=== PATIENT | male | born 2000 | race Caucasian/White ===

== ENCOUNTER 2021-11-18 02:19 | Outpatient (CLI) | payer BC, SELFPAY ==
[2021-11-18 12:24] LABS: Source Nasopharynx
[2021-11-18 16:03] LABS: COVID-19 PCR Negative (Negative)
== END 2021-11-18 02:20 | disposition home or self-care (01) ==
PROVIDERS: PCP Physician Assistant Medical; Visit Provider Surgery
DX: Z20.822 Contact with and (suspected) exposure to COVID-19 (principal); Z01.818 Encounter for other preprocedural examination
CPT/HCPCS: 87635

== ENCOUNTER 2021-11-20 10:48 | Day surgery (SDC) | payer BC, SELFPAY ==
[2021-11-20] VITALS (7 sets, daily range): BP systolic 92–129; BP diastolic 53–76; PULSE 64–73; RESP 11–18; TEMP 36.3–36.9; O2SAT 98–99; BMI 24.8
--- NOTE | 2021-11-20 07:30 | W.PM.OP ---
Date of service: 11/20/21 Time of Service: 12:40 Operative Note Operative Note DATE OF PROCEDURE: 11/20/21 PRE-OP DIAGNOSIS: pilonidal cyst POST-OP DIAGNOSIS: same PROCEDURE: Pilonidal cyst excision SURGEON: Ila Estrada Refer to Anesthesia Record ESTIMATED BLOOD LOSS: 25 PATHOLOGY: other (pilonidal cyst) COMPLICATIONS: None Patient was transported to: same day Patient's condition: stable Indications: Mr. Cherry is a pleasant 21-year-old gentleman with a pilonidal cyst.? We discussed surgery versus just watching for increase in symptoms.? The patient is tired of it draining and would like to proceed with surgery.? I discussed the risks and the benefits of the surgery as well as the surgery itself.? It would be important that he keeps the hair clipped while this is healing.? He will need help with this.? We also discussed the risk of wound dehiscence which is about 50% with the surgery.? If he does have a dehiscence he will need daily packing for weeks and sometimes months.? He understands and wishes to proceed. Risks, benefits, complications of pilonidal excision were reviewed with the patient and her stepfather.? Complications include but are not limited to bleeding, infection, seroma, hematoma, recurrence of the pilonidal cyst, wound dehiscence and adverse reaction to the medications.? We discussed a spinal anesthetic with MAC sedation for the procedure.? We reviewed pain medication for after surgery.? Reviewed use of Exparel mixed with bupivacaine to hopefully give her some pain relief for the first couple of days.? We discussed narcotic pain medications and risk of addiction.? We discussed safe disposal of any leftover narcotics.? Questions were entertained and answered to her satisfaction and she wished to proceed.? No guarantees were given or implied. Findings: large mass of hair under the dermis Procedure Description: After informed consent was obtained the patient was taken to the operating room and placed in a sitting position on the operating room table. Anesthesia then performed a spinal anesthetic. Once that was in place the patient was placed in a prone position on the bed. Monitors were applied and the patient was sedated. At this point a timeout was done. The patient's name, date of , allergies to medications, procedure to be performed, antibiotic prophylaxis and DVT prophylaxis were reviewed. Fire risk was assessed. Next the lower back and gluteal area was prepped and draped in a sterile surgical fashion. The midline was inspected and 3 small punctate areas were identified. The dermis and subcutaneous tissue were infiltrated with quarter percent bupivacaine plain. An elliptical incision was then made around the punctate areas measuring about 5 cm in length and about 0.4 cm in width. Dissection was done with cautery down to the coccyx. There was a lot of hair noted under the dermis. The tissue was removed from the operating field. The cavity was then irrigated with some normal saline. Small amount of bleeding was identified and this was cauterized. Once the wound was clean and dry it was closed in 4 layers. The first 3 layers were closed with interrupted 2-0 Vicryl sutures. The dermis was then reapproximated with horizontal mattress sutures with 2-0 Prolene. The skin was then cleaned and dried. mastasol and steri-strips were applied. The patient was then woken up and turned onto the [place] in a supine position. The patient tolerated the procedure well. Instrument needle and sponge counts were correct at the end of the case.
--- NOTE | 2021-11-20 07:32 | W.PM.DSUDISC ---
Discharge Plan Disposition Patient Disposition: HOME Condition: Good Discharge Details Reason For Visit: Pilonidal cyst Attending Provider: Ila Estrada Primary Care Provider: Eugenia Chiu Home Meds and New Rx's Prescriptions: New oxycodone 5 mg tablet 5 mg PO Q6H PRNQty: 14 0RF Continued calcium carbonate [Tums] 200 mg calcium (500 mg) tablet,chewable 200 mg PO DAILY Discharge Instructions Instructions: Pilonidal Cyst Excision (DC) Additional Instructions: Activity at Home after surgery: 1. Make sure you walk outside at least 4 times per day 2. You should be able to climb a flight of stairs 3. No driving while in pain or taking pain medications 4. No strenuous activity or heavy lifting for 4 weeks (open surgery) Diet, Nutrition, & wound healin. Avoid alcohol until after you are recovered from your surgery 2. Make sure to eat plenty of lean protein (meat, fish, eggs, cottage cheese, beans) 3. Eat a variety of fruits and vegetables. Eat plenty of high fiber foods to avoid constipation. 4. Drink plenty of liquids to stay hydrated and avoid constipation Pain Medications: 1. Tylenol 650mg every 6 hours as needed and Ibuprofen 600 mg every 6 hours as needed. You may alternate between the 2 medications every 3 hours 2. If a narcotic has been prescribed take as directed only for breakthrough pain For Constipation: 1. Take Milk of Magnesia or MiraLax as needed for constipation Other: 1. You may shower daily. Do not scrub the incisions 2. Do not soak the incisions for 1 week 3. You may alternate ice and heat as needed for pain and swelling Wound Care: 1. Keep the incisions clean and dry Please call our office if you develop: 1. Fevers >101.5 2. Nausea or Vomiting 3. Worsening pain 4. Redness and thick discharge from the wounds If after hours please call the Hospital at and ask to speak to the on-call surgeon Referrals: Ila Estrada MD [ [facility] STAFF PHYSICIAN] - 11/27/21 10:30 am Activity:: as above Shower/Bathe:: 24 hours Diet:: As Tolerated Discharge Orders Discharge Orders: Discharge Order (Routine); Ordered 11/20/21 Ordered By: Ila Estrada
--- NOTE | 2021-11-20 08:15 | W.ANESPRE ---
General Info Height: 5 ft 10 in Weight: 79.379 kg Body Mass Index (BMI): 25.1 Surgical Procedure: Operation Date: 11/20/21 12:10 Proposed Procedure Side Surgeon p Pilonidal Cyst Excision Ila Estrada MD Meds Allergies and Home Medications Allergies Allergy/AdvReac Type Severity Reaction Status Date / Time No Known Allergies Allergy Verified 11/18/21 11:10 Home Medication Medication Instructions Recorded calcium carbonate 200 mg calcium 200 mg PO DAILY 11/06/21 (500 mg) chewable tablet (Tums) Current Visit Medications: Current Medications Generic Name Dose Route Start Last Admin Trade Name Freq PRN Reason Stop Dose Admin Acetaminophen 1,000 mg 11/20/21 06:00 Acetaminophen 500 Mg Tab PO 11/20/21 18:00 PREOP AMINATA Celecoxib 200 mg 11/20/21 06:00 Celecoxib 200 Mg Cap PO 11/20/21 18:00 PREOP AMINATA Gabapentin 300 mg 11/20/21 06:00 Gabapentin 300 Mg Cap PO 11/20/21 18:00 PREOP AMINATA Ringer's Solution 1,000 mls @ 80 mls/hr 11/20/21 06:00 IV 12/19/21 23:59 INFUSION AMINATA Cefazolin Sodium/Dextrose 2 gm in 50 mls @ 100 mls/hr 11/20/21 06:00 Ancef Duplex IVPB 11/20/21 18:00 PREOP AMINATA Ondansetron HCl 4 mg/ Sodium 52 mls @ 200 mls/hr 11/20/21 07:33 Chloride IVPB Q6H PRN PRN IV Miscellaneous Supplies 1 each 11/20/21 06:00 Iv Access IV 12/19/21 23:59 DIRECTED AMINATA Oxycodone HCl 5 mg 11/20/21 07:33 Oxycodone 5 Mg Tab PO Q3H PRN PRN Pain Sodium Chloride 0 ml 11/20/21 06:00 Normal Saline Flush 10 Ml Syr IV 12/19/21 23:59 PRN PRN Sodium Chloride 0 ml 11/20/21 06:00 Normal Saline 10 Ml Vial IJ 12/19/21 23:59 DIRECTED PRN Sterile Water 0 ml 11/20/21 06:00 Water,Injection,Sterile 10 Ml Vial IJ 12/19/21 23:59 DIRECTED PRN PFSH Active Problems Active Problems: Problem Status Onset Code Pilonidal cyst L05.91 Medical History Medical History ADHD (attention deficit hyperactivity disorder) Depressive disorder Surgical History Surgical History S/P inguinal hernia repair (~2005) Tobacco Smoking/Tobacco Use Status: Never Alcohol Alcohol Intake: current Alcohol intake frequency: a few times a week Substance Use Substance use: Never Substance use type: does not use Vital Signs and Lab Results Lab Results Blood Type / Crossmatch: No Data to Display Complete Blood Count: No Data to Display Complete Metabolic Panel: No Data to Display Liver Function Panel: No Data to Display Coagulation Panel: No Data to Display Cardiac Panel: No Data to Display Arterial Blood Gas: No Data to Display Venous Blood Gas: No Data to Display Pancreas Panel: No Data to Display Thyroid Panel: No Data to Display Infectious Disease: Coronavirus (COVID-19)(PCR) Negative (Negative) 11/18/21 08:00 Coronavirus 2019 Source Nasopharynx 11/18/21 08:00 Blood Cultures: No Data to Display Toxicology Panel: No Data to Display Anesthesia Assessment and Plan Anesthesia History Personal History: No History of Anesthesia Complications Family History: No Family History of Anesthesia Complications Implantable Cardiac Device Does patient have a Pacemaker or an ICD?: No ASA Classification ASA Score: ASA 2 Emergency Case?: No Anesthesia Plan Resuscitation Status: Full Code Monitors Used: Standard Monitors Preoperative Comments:: 21 yo with pilonidal cyst here for I/d. Sig PMHx: ADHD, depression. Discussed risk, benefits spinal vs general plan for
[2021-11-20] MEDS: Lactated Ringers 1,000 ML 80 ML IV (11:33)
--- NOTE | 2021-11-20 11:49 | W.ANESPRE ---
General Info Date of Service Date Performed: 11/20/21 Height: 5 ft 10 in Weight: 78.6 kg Body Mass Index (BMI): 24.8 Surgical Procedure: Operation Date: 11/20/21 12:10 Proposed Procedure Side Surgeon p Pilonidal Cyst Excision Ila Estrada MD Meds Allergies and Home Medications Allergies Allergy/AdvReac Type Severity Reaction Status Date / Time No Known Allergies Allergy Verified 11/18/21 11:10 Home Medication Medication Instructions Recorded calcium carbonate 200 mg calcium 200 mg PO DAILY 11/06/21 (500 mg) chewable tablet (Tums) Current Visit Medications: Current Medications Generic Name Dose Route Start Last Admin Trade Name Freq PRN Reason Stop Dose Admin Acetaminophen 1,000 mg 11/20/21 06:00 Acetaminophen 500 Mg Tab PO 11/20/21 18:00 PREOP AMINATA Celecoxib 200 mg 11/20/21 06:00 Celecoxib 200 Mg Cap PO 11/20/21 18:00 PREOP AMINATA Gabapentin 300 mg 11/20/21 06:00 Gabapentin 300 Mg Cap PO 11/20/21 18:00 PREOP AMINATA Ringer's Solution 1,000 mls @ 80 mls/hr 11/20/21 06:00 11/20/21 11:33 IV 12/19/21 23:59 80 mls/hr INFUSION AMINATA Administration Cefazolin Sodium/Dextrose 2 gm in 50 mls @ 100 mls/hr 11/20/21 06:00 Ancef Duplex IVPB 11/20/21 18:00 PREOP AMINATA Ondansetron HCl 4 mg/ Sodium 52 mls @ 200 mls/hr 11/20/21 07:33 Chloride IVPB Q6H PRN PRN IV Miscellaneous Supplies 1 each 11/20/21 06:00 Iv Access IV 12/19/21 23:59 DIRECTED AMINATA Oxycodone HCl 5 mg 11/20/21 07:33 Oxycodone 5 Mg Tab PO Q3H PRN PRN Pain Sodium Chloride 0 ml 11/20/21 06:00 Normal Saline Flush 10 Ml Syr IV 12/19/21 23:59 PRN PRN Sodium Chloride 0 ml 11/20/21 06:00 Normal Saline 10 Ml Vial IJ 12/19/21 23:59 DIRECTED PRN Sterile Water 0 ml 11/20/21 06:00 Water,Injection,Sterile 10 Ml Vial IJ 12/19/21 23:59 DIRECTED PRN [facility] Active Problems Active Problems: Problem Status Onset Code Pilonidal cyst L05.91 Medical History Medical History ADHD (attention deficit hyperactivity disorder) Depressive disorder Surgical History Surgical History S/P inguinal hernia repair (~2004) Tobacco Smoking/Tobacco Use Status: Never Alcohol Alcohol Intake: current Alcohol intake frequency: a few times a week Substance Use Substance use: Never Substance use type: does not use Vital Signs and Lab Results Vital Signs Most Recent Vital Signs in EMR: Most Recent Vital Signs Temp Pulse Resp BP Pulse Ox 36.3 C L 73 16 129/74 99 11/20/21 11:00 11/20/21 11:00 11/20/21 11:00 11/20/21 11:00 11/20/21 11:00 Lab Results Blood Type / Crossmatch: No Data to Display Complete Blood Count: No Data to Display Complete Metabolic Panel: No Data to Display Liver Function Panel: No Data to Display Coagulation Panel: No Data to Display Cardiac Panel: No Data to Display Arterial Blood Gas: No Data to Display Venous Blood Gas: No Data to Display Pancreas Panel: No Data to Display Thyroid Panel: No Data to Display Infectious Disease: Coronavirus (COVID-19)(PCR) Negative (Negative) 11/18/21 08:00 Coronavirus 2019 Source Nasopharynx 11/18/21 08:00 Blood Cultures: No Data to Display Toxicology Panel: No Data to Display Anesthesia Assessment and Plan Anesthesia History Personal History: No History of Anesthesia Complications Family History: Family History Unknown (PONV) Exercise Tolerance Exercise Tolerance: Metabolic Equivalents>4 Pertinent Negatives Pertinent Negatives: No Symptoms of GERD, No Major Cardiovascular Symptoms or Complaints, No Major Pulmonary Symptoms or Complaints and No History of CVA/TIA Cardiac & Pulmonary Exam Cardiac Exam: Normal S1/S2 Heart Sounds Pulmonary Exam: Clear Bilateral Breath Sounds Implantable Cardiac Device Does patient have a Pacemaker or an ICD?: No Airway Exam Known Difficult Airway: No Mallampati Class: 1 Mouth Opening: Normal (> 3cm) Thyromental Distance: Greater than 3 cm Neck Range of Motion: Full ROM Neck Circumference: Normal Teeth Condition: Normal Dentition ASA Classification ASA Score: ASA 2 Emergency Case?: No NPO Status NPO Status: NPO Clears >2 hours, Solids >8 hours Anesthesia Plan Resuscitation Status: Full Code Anesthesia Technique: Spinal Anesthesia Airway Planned: Natural Airway Monitors Used: Standard Monitors
[2021-11-20] MEDS: Acetaminophen 500 MG TAB 1000 MG PO (11:56)
[2021-11-20] MEDS: Celecoxib 200 MG CAP PO (11:56)
[2021-11-20] MEDS: Gabapentin 300 MG CAP PO (11:56)
[2021-11-20] MEDS: ceFAZolin 2 GM/50 ML BAG IVPB (12:38)
--- NOTE | 2021-11-20 13:41 | W.ANESPOSTOP ---
Postoperative Evaluation Date, Time and Location Date Performed: 11/20/21 Time Performed: 13:41 Patient Location: PACU Vital Signs Most Recent Imported Vital Signs: Most Recent Vital Signs Temp Pulse Resp BP Pulse Ox 36.6 C 72 11 L 129/74 98 11/20/21 13:31 11/20/21 13:31 11/20/21 13:31 11/20/21 11:00 11/20/21 13:31 Assessment Mental Status: Arousable with meaningful communication Airway and Respiratory Function: Patent airway with normal (patient baseline) respiratory exam Cardiovascular Function: Hemodynamically Stable Hydration Status: Adequately Hydrated Nausea & Vomiting: No Nausea or Vomiting Pain: Pt. Denies Any Pain Peripheral Nerve Block: Other (spinal still in effect. )
== END 2021-11-20 15:55 | disposition home or self-care (01) ==
PROVIDERS: PCP Physician Assistant Medical; Visit Provider Surgery
PROC: (CPT 11770; principal; 2021-11-20 12:00)
DX: L05.91 Pilonidal cyst without abscess (principal); F32.A Depression, unspecified
CPT/HCPCS: 11770; J0690; J2250; J2405; J2704